=== PATIENT | male | born 1985 | race Caucasian/White ===

== ENCOUNTER → 2020-07-26 | Outpatient (CLI) | payer OTHER ==
--- NOTE | 2020-09-13 14:10 | ECHO ---
ECHOCARDIOGRAM DATE OF PROCEDURE: 07/26/2020 Age: 34 Gender: Male REFERRING PHYSICIAN: Dr. Nader Figueredo. PATIENT LOCATION: Outpatient. REASON FOR STUDY: Occupational requirement. 2D MEASUREMENTS: IVS 0.99 cm LV 5.5 cm LVPW 0.95 cm LA 3.9 cm Aorta 3.3 cm IVC 1.8 cm DOPPLER MEASUREMENT Peak velocity across the aortic valve 1.0 m/s Mitral E 0.63 Mitral A 0.48 with a ratio of 1.3 2D COMMENTS: 1. Normal left ventricular size, wall thickness, and normal global left ventricular systolic function. The estimated left ventricular systolic ejection fraction is 55% to 65%. 2. Normal left atrium. Normal right atrium and right ventricle. The atrial septum appeared to be normal without evidence of defect or shunt. 3. Normal aortic root. 4. No pericardial effusion seen. 5. The aortic valve, mitral valve, tricuspid valve, and pulmonic valve appear to be normal. The proximal pulmonary artery branches were not well visualized. 6. The inferior vena cava is borderline enlarged. DOPPLER: It detects trace mitral regurgitation, trace tricuspid regurgitation, and trace pulmonic regurgitation. The calculated pulmonary artery systolic pressure is most likely normal. Assessment of the left ventricular diastolic function was normal. IMPRESSION: 1. Normal global left ventricular systolic and diastolic function. 2. Trace mitral regurgitation. 3. Trace tricuspid regurgitation. 4. Trace pulmonic regurgitation. MTDD
== END ==
LOC: M CARPUL 12:02
DX: Z02.89 Encounter for other administrative examinations (principal); I08.1 Rheumatic disorders of both mitral and tricuspid valves

== ENCOUNTER → 2020-08-19 | Outpatient (CLI) | payer OTHER ==
--- NOTE | 2020-08-19 14:13 | PFTRPT ---
Site: [facility], [address] [place], [address] ID: [id number] Name: INESSA CEE Visit Date: 08/19/2020 Second ID: [id number] Referring Doctor: Garret Figueredo Reviewing Doctor: Ra Cavazos MD Manager Oracle: Jose MONTENEGRO, SIMBA Age: 34 : 1985 Sex: Male Race: Height: 74.00 Inches Weight: 215.00 Lbs BSA: 2.24 Order IDs: [id number] Requested Test(s): <RESP-PFT.PFT> Diagnosis: Annual physical test appear to be valid, although the ATS standard for "end of test" was not met. Review Status: Not Reviewed Pre-Bronch Post-Bronch Pred Actual %Pred Actual %Chng SPIROMETRY FVC (L) 6.10 6.11 100 FEV1 (L) 4.89 4.25 86 FEV1/FVC (%) 81 70 85 FEF 25% (L/sec) 8.78 5.80 66 FEF 50% (L/sec) 5.51 3.41 61 FEF 75% (L/sec) 2.17 1.52 70 FEF 25-75% (L/sec) 4.66 3.04 65 FEF Max (L/sec) 11.18 9.41 84 FIVC (L) 5.50 FIF 50% (L/sec) 5.40 7.70 142 FIF Max (L/sec) 7.70 Expiratory Time (sec) 6.09 Back Extrap Vol (L) 0.12 Time To FEFmax (sec) 0.072
== END ==
LOC: M CARPUL 13:57
DX: R06.02 Shortness of breath (principal)

== ENCOUNTER 2020-10-21 00:38 | Emergency (ER) | payer OTHER ==
[~2020-10-21] VITALS: Ht 188 cm; Wt 97.7 kg
[2020-10-21 00:38] VITALS: BP 161/90
== END 2020-10-21 02:20 | disposition left against medical advice (07) ==
LOC: M ED 00:38
DX: Z53.21 Procedure and treatment not carried out due to patient leaving prior to being seen by health care provider (principal)

== ENCOUNTER → 2021-09-11 | Outpatient (CLI) | payer OTHER | LOC: M RAD 10:24 | PROVIDERS: ATTEND Physician Assistant | DX: R06.00 Dyspnea, unspecified (principal) ==

== ENCOUNTER → 2021-09-22 | Outpatient (CLI) | payer OTHER | LOC: M CARPUL 14:29 | PROVIDERS: ATTEND Physician Assistant Medical | DX: I10 Essential (primary) hypertension (principal) ==

== ENCOUNTER → 2021-09-25 | Outpatient (CLI) | payer OTHER ==
[~2021-09-25] MED LIST: METHACHOLINE KIT (J7674) INH ONE
== END ==
LOC: M CARPUL 10:01
PROVIDERS: ATTEND Physician Assistant
DX: R06.00 Dyspnea, unspecified (principal)
CPT/HCPCS: 94070; J7674

== ENCOUNTER → 2022-09-30 | Outpatient (CLI) | payer OTHER | LOC: M CARPUL 13:30 | PROVIDERS: ATTEND Physician Assistant Medical | DX: I11.9 Hypertensive heart disease without heart failure (principal) ==

== ENCOUNTER → 2023-07-12 | Outpatient (CLI) | payer OTHER | LOC: M CARPUL 08:15 | PROVIDERS: ATTEND Physician Assistant | DX: I51.7 Cardiomegaly (principal) ==

== ENCOUNTER → 2024-10-09 | Outpatient (CLI) | payer OTHER | LOC: M CARPUL 08:32 | PROVIDERS: ATTEND Physician Assistant Medical | DX: J45.909 Unspecified asthma, uncomplicated (principal) ==